=== PATIENT | male | born 1975 | race Two or more races ===

== ENCOUNTER → 2018-05-16 | Outpatient (CLI) | payer OTHER ==
--- NOTE | 2018-05-16 12:17 | XCELERA REPORT ---
[address] [facility] [address] Lower Extremity Venous Evaluation Procedure: Color flow and duplex imaging bilaterally of the veins of the lower extremities as well as the Common Femoral veins. Right Sided Venous Evaluation Normal vessel filling wall to wall, compression and augmentation as well as Colour flow down to the infrageniculate veins. Left Sided Venous Evaluation Normal vessel filling wall to wall, compression and augmentation as well as Colour flow down to the infrageniculate veins. Interpretation Summary No duplex evidence of DVT or obstruction in the bilateral lower extremities. Name: CELESTINO GUTIERREZ Age: 42 yrs Gender: Male : 1975 Patient Status: Outpatient Patient Location: Study Date: 05/16/2018 10:06 AM Reason For Study: LEG PAIN Ordering Physician: CULLEN ALONSO Performed By: Martha Rodriguez : CULLEN ALONSO > Cullen Alonso
== END ==
LOC: SP 08:47
PROVIDERS: ATTEND Surgery
DX: M79.604 Pain in right leg (principal)
CPT/HCPCS: 93970